=== PATIENT | male | born 1980 | race African-American/Black ===

== ENCOUNTER → 2021-06-04 | Outpatient (CLI) | payer OTHER ==
[2021-06-04 20:19] LABS: HCT 43.4 % (39.6-50.0); HGB 13.2 g/dL (13.0-17.0); MCH 26.5 pg (27.0-32.0); MCHC 30.4 g/dL (32.0-37.0); Mean Platelet Volume 9.9 fL (9.5-12.2); Platelet Count 304 X 10*3/uL (140-440); RBC 4.99 X 10*6/uL (4.40-5.60); RDW 13.8 % (11.5-14.5); WBC 8.63 X 10*3/uL (4.50-10.00)
[2021-06-04 23:33] LABS: African American GFR (CKD) 97.9 (60.0-200.0); Anion Gap 4.7 mmol/L (10.00-18.00); BUN/Creat Ratio 11.65 Ratio (12.00-20.00); Blood Urea Nitrogen 12.7 mg/dL (9.0-27.0); Calcium 9.5 mg/dL (8.7-10.3); Carbon Dioxide 32.9 mmol/L (20.0-27.5); Non-African American GFR(CKD) 84.5 (60.0-200.0); Potassium 4.4 mmol/L (3.5-5.5)
[2021-06-05 01:29] LABS: INR 0.99 (0.90-1.11); Partial Thromboplastin Time 28.9 sec (23.5-31.0); Prothrombin Time 11.2 sec (9.9-11.9)
== END | disposition home or self-care (01) ==
LOC: LABWHC1 14:58
DX: M25.511 Pain in right shoulder (principal)
CPT/HCPCS: 80048; 85027; 85610; 85730; 36415; U0003; U0005